=== PATIENT | female | born 1990 | race Two or more races ===

== ENCOUNTER 2021-01-18 13:45 | Emergency (ER) | payer MEDICAID, MEDICARE ==
[~2021-01-18] VITALS: Ht 160 cm; Wt 64.0 kg
[2021-01-18] MEDS ORDERED: BACITRACIN ZINC OINT UDPKT TOP ONE (17:30)
[2021-01-18] MEDS ORDERED: LIDOCAINE HCL/PF 1% 10 MG/ML 5ML VIAL IJ ONE (17:30)
[2021-01-18] MEDS ORDERED: HYDROCODONE/ACETAMINOPHEN 5/325MG TABLET PO ONE (17:30)
[2021-01-18 17:45] VITALS: BP 122/68
[2021-01-18] MEDS ORDERED: TETANUS, DIPHTHERIA, PERTUSSIS VAC/PF 0.5ML (>7YR OLD) IM ONE (19:00)
[2021-01-18] MEDS ORDERED: IBUP-2029 MT (19:04)
== END 2021-01-18 19:36 | disposition home or self-care (01) ==
LOC: ER 13:45
DX: S61.412A Laceration without foreign body of left hand, initial encounter (principal); Z98.890 Other specified postprocedural states; W26.9XXA Contact with unspecified sharp object(s), initial encounter; Y93.89 Activity, other specified; Y92.89 Other specified places as the place of occurrence of the external cause; Y99.8 Other external cause status
CPT/HCPCS: 12002; 73130; 99283; A4217; Z7610

== ENCOUNTER 2021-01-21 09:02 | Emergency (ER) | payer MEDICARE ==
[~2021-01-21] VITALS: Ht 157.5 cm; Wt 50.0 kg
[~2021-01-21 09:02] MED LIST: IBUP-2029 MT
[2021-01-21 09:05] VITALS: BP 106/61
== END 2021-01-21 11:07 | disposition home or self-care (01) ==
LOC: ER 09:02
DX: S61.412D Laceration without foreign body of left hand, subsequent encounter (principal); W25.XXXD Contact with sharp glass, subsequent encounter; J45.909 Unspecified asthma, uncomplicated
CPT/HCPCS: 99282

== ENCOUNTER 2021-02-01 06:21 | Emergency (ER) | payer MEDICARE ==
[~2021-02-01] VITALS: Ht 157.5 cm; Wt 50.0 kg
[2021-02-01 06:45] VITALS: BP 106/74
[2021-02-01] MEDS ORDERED: MUPI15CR11 TP (07:14)
== END 2021-02-01 08:11 | disposition home or self-care (01) ==
LOC: ER 06:21
DX: S61.412A Laceration without foreign body of left hand, initial encounter (principal); Z48.00 Encounter for change or removal of nonsurgical wound dressing; W25.XXXA Contact with sharp glass, initial encounter; Y93.89 Activity, other specified; Y92.89 Other specified places as the place of occurrence of the external cause; Y99.8 Other external cause status
CPT/HCPCS: 99283

== ENCOUNTER 2021-02-27 06:51 | Emergency (ER) | payer MEDICAID, MEDICARE ==
[~2021-02-27] VITALS: Ht 157.5 cm; Wt 47.8 kg
[~2021-02-27 06:51] MED LIST changes: +MUPI15CR11 TP
[2021-02-27] MEDS ORDERED: PREDNISONE 20MG TABLET PO STA (07:14)
[2021-02-27] MEDS ORDERED: ALBUTEROL (0.083%) 2.5MG/3ML NEB HHN STA (07:14)
[2021-02-27] MEDS ORDERED: IPRATROPIUM BROMIDE (0.02%) 0.5MG/2.5ML NEB HHN STA (07:14)
[2021-02-27] MEDS ORDERED: ALBU6.7H9 INH (08:55)
[2021-02-27] MEDS ORDERED: P50 MT (08:55)
[2021-02-27] MEDS ORDERED: ALBU05 NEB (08:56)
[2021-02-27 10:00] VITALS: BP 115/64
== END 2021-02-27 10:22 | disposition home or self-care (01) ==
LOC: ER 06:51
DX: J45.901 Unspecified asthma with (acute) exacerbation (principal); F17.200 Nicotine dependence, unspecified, uncomplicated; Z79.899 Other long term (current) drug therapy
CPT/HCPCS: 71045; 94640; 99285; J7512; Z7610

== ENCOUNTER 2021-12-23 15:11 | Emergency (ER) | payer MEDICAID, MEDICARE ==
[~2021-12-23] VITALS: Ht 157.5 cm; Wt 50.0 kg
[~2021-12-23 15:11] MED LIST changes: +ALBU05 NEB; +ALBU6.7H9 INH; +P50 MT
[2021-12-23 16:45] LABS: BASOPHILS % 0.6 % (0.0-2.0); EOSINOPHILS % 6.7 % (0.0-5.0); HEMATOCRIT. 43.2 % (36.0-48.0); HEMOGLOBIN. 14.6 g/dL (12.0-16.0); LYMPHOCYTES % 19.7 % (20.0-50.0); MEAN CORPUSCULAR HEMOGLOBIN 30.1 pg (28.0-32.0); MEAN CORPUSCULAR VOLUME 88.9 fL (81.0-99.0); MEAN PLATELET VOLUME 9.1 fl (7.4-10.4); MONOCYTES % 11.9 % (2.0-8.0); NEUTROPHILS % 61.1 % (40.0-76.0); PLATELET 300 x1000/uL (130-400); RED BLOOD CELL COUNT 4.86 mill/uL (4.2-5.4); RED CELL DISTRIBUTION WIDTH 13.6 % (11.6-14.6)
[2021-12-23 16:55] LABS: CHLORIDE 110 mEq/L (98-107)
[2021-12-23] MEDS ORDERED: ACETAMINOPHEN 325MG TABLET PO STA (18:06)
[2021-12-23] MEDS ORDERED: MAGNESIUM/ALUMINUM HYDROXIDE/SIMETHICONE 30ML UDC PO STA (18:06)
[2021-12-23 20:25] VITALS: BP 118/76
== END 2021-12-23 20:44 | disposition home or self-care (01) ==
LOC: ER 15:11
DX: R10.33 Periumbilical pain (principal); R11.0 Nausea; J45.909 Unspecified asthma, uncomplicated; Z87.891 Personal history of nicotine dependence
CPT/HCPCS: 36415; 76705; 76857; 80053; 81025; 85025; 99284

== ENCOUNTER 2022-02-27 08:59 | Emergency (ER) | payer MEDICARE ==
[~2022-02-27] VITALS: Ht 162.6 cm; Wt 59.0 kg
[2022-02-27] MEDS ORDERED: PREDNISONE 20MG TABLET PO STA (09:29)
[2022-02-27] MEDS ORDERED: P50 PO (10:34)
[2022-02-27] MEDS ORDERED: ALBU6.7H9 INH (10:34)
[2022-02-27 11:11] VITALS: BP 120/75
== END 2022-02-27 11:12 | disposition home or self-care (01) ==
LOC: ER 09:14
DX: J45.901 Unspecified asthma with (acute) exacerbation (principal)
CPT/HCPCS: 99283; J7512

== ENCOUNTER 2022-04-23 10:07 | Emergency (ER) | payer MEDICAID, MEDICARE ==
[~2022-04-23] VITALS: Ht 165.1 cm; Wt 50.0 kg
[~2022-04-23 10:07] MED LIST changes: +P50 PO
[2022-04-23] MEDS ORDERED: IPRATROPIUM BROMIDE (0.02%) 0.5MG/2.5ML NEB HHN STA ×2 (10:10→11:31)
[2022-04-23] MEDS ORDERED: ALBUTEROL (0.083%) 2.5MG/3ML NEB HHN STA ×2 (10:10→11:31)
[2022-04-23] MEDS ORDERED: METHYLPREDNISOLONE SOD SUCC 125 MG/2 ML VIAL IV STA (10:10)
[2022-04-23] MEDS ORDERED: MAGNESIUM 2 G PREMIX 50 ML IV ONE (10:15)
[2022-04-23 10:41] LABS: HEMATOCRIT. 43.9 % (36.0-48.0); MEAN CORPUSCULAR HEMOGLOBIN 30.5 pg (28.0-32.0); MEAN CORPUSCULAR VOLUME 89.1 fL (81.0-99.0); MEAN PLATELET VOLUME 8.1 fl (7.4-10.4); PLATELET 329 x1000/uL (130-400); RED BLOOD CELL COUNT 4.92 mill/uL (4.2-5.4); RED CELL DISTRIBUTION WIDTH 13.6 % (11.6-14.6)
[2022-04-23 10:51] LABS: CHLORIDE 108 mEq/L (98-107)
[2022-04-23 11:11] LABS: BG CARBOXYHEMOGLOBIN 0.1 % (0.5-1.5); BG DEOXYHEMOGLOBIN 0.4 % (0.0-5.0); BG FRACTION INSPIRED OXYGEN 100; BG HCO3 ACT 24.5 mmol/L (22.0-26.0); BG METHEMOGLOBIN 0.3 % (0.0-1.5); BG OXYGEN SATURATION 99.6 % (92.0-98.5); BG OXYHEMOGLOBIN 99.2 % (94.0-97.0); BG PCO2 39.3 mmHg (35.0-45.0); BG PH 7.412 (7.350-7.450); BG PO2 569.6 mmHg (75.0-100.0); BG SAMPLE SITE RIGHT BRACHIAL; BG TOTAL HEMOGLOBIN 14.5 g/dL (12.0-18.0); BG VENT MODE MASK - BIPAP
[2022-04-23 12:50] LABS: PLATELET ESTIMATE NORMAL
[2022-04-23 13:02] VITALS: BP 119/68
== END 2022-04-23 13:17 | disposition left against medical advice (07) ==
LOC: ER 10:13
DX: J45.901 Unspecified asthma with (acute) exacerbation (principal); Z79.899 Other long term (current) drug therapy
CPT/HCPCS: 36415; 36600; 71045; 80053; 82375; 82805; 83880; 84484; 85025; 94640; 94660; 96365; 96375; 99291; J2930; J3475; Z7610